=== PATIENT | male | born 1965 | race Caucasian/White ===

== ENCOUNTER 2018-12-24 23:28 | Inpatient (IN) | payer OTHER ==
[2018-12-24] MEDS ORDERED: methylPREDNISolone 125 MG* 2 ML VIAL ONE (23:35)
[2018-12-24] MEDS ORDERED: Albuterol 0.5% CONC NEB.SOL* 5 MG/ML 20 ml BOT ONE (23:36)
[2018-12-24] MEDS ORDERED: Magnesium Sulfate 2 GM IV* 2 GM/50 ML BAG ONE (23:38)
[2018-12-24] MEDS ORDERED: NS 0.9% 1000 ML** 1,000 ML IV ONE (23:44)
[2018-12-24] MEDS ORDERED: Albuterol 0.5% CONC NEB.SOL* 5 MG/ML 20 ml BOT INH ONE (23:44)
[2018-12-24] MEDS ORDERED: methylPREDNISolone 125 MG* 2 ML VIAL IV ONE (23:44)
--- NOTE | 2018-12-24 23:48 | ED ---
Shortness of Breath - HPI Summary HPI Summary: The patient is a 53 y/o M presenting to [facility] with a chief complaint of severe sudden onset respiratory distress tonight. In the ED, he is diaphoretic with cyanotic skin as he is wheezing and states his chest is tight. He denies CP. No hx of asthma, COPD, or cardiac problems, and he is a nonsmoker. He uses marijuana occasionally. With O2 in the ED, his color returns to normal. He states he wasn't feeling well earlier today, and he had a pain in his left leg. Initial history was limited due to severe respiratory distress, but on subsequent reevaluation's the patient related a history of several weeks of trouble breathing with cough. He had been prescribed a course of prednisone by his primary care doctor several weeks ago which improved his situation, but once he finished the prednisone his symptoms returned. - History of Current Complaint Hx Obtained From: Patient Onset/Duration: Sudden Onset, Lasting Minutes, Still Present Current Severity: Severe Dyspnea At: Rest Alleviating Factors: Oxygen Associated Signs & Symptoms: Wheezing, Diaphoresis - Allergy/Home Medications Allergies/Adverse Reactions: Allergies Allergy/AdvReac Type Severity Reaction Status Date / Time No Known Allergies Allergy Verified 10/05/17 15:09 Home Medications: Home Medications Hydrochlorothiazide TAB* [Hydrodiuril TAB*] 25 mg PO DAILY 12/25/18 [History Confirmed 12/25/18] PMH/Surg Hx/FS Hx/Imm Hx Endocrine/Hematology History: Denies: Hx Diabetes Cardiovascular History: Denies: Hx Hypertension, Hx Pacemaker/ICD Respiratory History: Reports: Other Respiratory Problems/Disorders - pneumothorax in accident Denies: Hx Sleep Apnea History: Denies: Hx Renal Disease Musculoskeletal History: Reports: Hx Back Problems - hx injury, Other Musculoskeletal History - states he has restless leg syndrome Sensory History: Denies: Hx Hearing Aid Neurological History: Reports: Hx Headaches - hx headaches at times, Other Neuro Impairments/Disorders - states he likely had a head injury when young Denies: Hx Developmental Delay Psychiatric History: Reports: Hx Depression Denies: Hx Panic Disorder - Surgical History Surgery Procedure, Year, and Place: RIGHT KNEE ARTHOSCOPIC SURGERY. LT HIP REPLACEMENT Infectious Disease History: No - Family History Known Family History: Negative: Cardiac Disease - Social History Alcohol Use: Occasionally Alcohol Amount: 3x/wk x 3 drinks Hx Substance Use: No Substance Use Type: Reports: Marijuana, Prescribed Substance Use Comment - Amount & Last Used: [place] Hx Tobacco Use: No Smoking Status (MU): Never Smoked Tobacco Review of Systems Positive: Skin Diaphoresis Negative: Chest Pain Positive: Shortness Of Breath - severe, Other - wheezing Positive: Other - pain in left leg Positive: Other - cyanotic All Other Systems Reviewed And Are Negative: Yes Physical Exam - Summary Physical Exam Summary: Appearance: In obvious respiratory distress, initially diaphoretic and appeared to be cyanotic Skin: Warm, dry, no obvious rash Eyes: sclera anicteric, no conjunctival pallor ENT: mucous membranes moist, pharynx appears normal Neck: Supple, nontender Respiratory: In obvious respiratory distress, diffuse bilateral severe wheezing in the lungs but no crackles, markedly diminished breath sounds Cardiovascular: Normal S1, S2. No murmurs. Normal distal pulses in tibial and radial bilaterally. Abdomen: Soft, nontender, normal active bowel sounds present Musculoskeletal: Normal, Strength/ROM Intact, no swelling in legs Neurological: A&Ox3, awake and alert, mentation is normal, speech is fluent and appropriate Psychiatric: affect is normal, does not appear anxious or depressed Triage Information Reviewed: Yes Vital Signs Reviewed: Yes Diagnostics - Laboratory Result Diagrams: 12/25/18 04:42 12/24/18 23:44 Lab Statement: Any lab studies that have been ordered have been reviewed, and results considered in the medical decision making process. - Radiology CXR Radiology Interpretation Completed By: Radiologist Summary of Radiographic Findings: No acute process. ED physician has reviewed this report. - CT Chest CTA CT Interpretation Completed By: Radiologist Summary of CT Findings: Suboptimal evaluation of pulmonary arteries due to inadequate opacification of contrast. ED physician has reviewed this report. - EKG 23:33 Cardiac Rate: Tachycardia - 124 BPM EKG Rhythm: Sinus Tachycardia Summary of EKG Findings: Sinus tachycardia. Re-Evaluation - Re-Evaluation First Eval Re-Evaluation Time: 01:00 Change: Improved Comment: Patient is improving with treatments. Second Eval Re-Evaluation Time: 02:00 Change: Unchanged Comment: We discussed admission. Course/Dx - Course Course Of Treatment: The patient is a 53 y/o M presenting to [facility] with a chief complaint of severe sudden onset respiratory distress tonight. In the ED, he is diaphoretic with cyanotic skin as he is wheezing and states his chest is tight. He denies CP. No hx of asthma, COPD, or cardiac problems, and he is a nonsmoker. He uses marijuana occasionally. With O2 in the ED, his color returns to normal. He states he wasn't feeling well earlier today, and he had a pain in his left leg. Upon physical examination, the patient is in obvious respiratory distress, his heart sounds normal but hes tachycardic, there are diffuse bilateral severe wheezing in the lungs but no crackles, markedly diminished breath sounds, no swelling in legs, and he was initially diaphoretic and appeared to be cyanotic. In the ED course, the patient was administered Albuterol, Mag Sulfate, Solu-Medrol, Ns, and put on Vapotherm. Lab work reveals elevated WBCs, neuts, monos, eos, D-Dimer, VBG pO2, O2 Sat, and lactic acid of 7.4. EKG reveals sinus tachycardia. CXR reveals no acute process. Chest CTA reveals no significant changes at this time due to inadequate reading. Repeat may be necessary by hospitalist. I spoke with Dr. Taylor, hospitalist, who accepts the patient for admission at 0300. The patient is diagnosed with acute respiratory failure and asthma exacerbation. He agrees with and understands need for admission. Critical Care Time of 60 minutes. - Diagnoses Provider Diagnoses: Acute respiratory failure, Asthma exacerbation - Critical Care Time Critical Care Time: 30-74 min - Critical care time of 60 minutes. Discharge - Sign-Out/Discharge Documenting (check all that apply): Patient Departure - Patient will be admitted to [facility] for further care. Patient Received Moderate/Deep Sedation with Procedure: No - Discharge Plan Condition: Stable Disposition: ADMITTED TO [facility] Referrals: Bernabe Bell MD [Primary Care Provider] - - Billing Disposition and Condition Condition: STABLE Disposition: Admitted to [facility] - Attestation Statements Document Initiated by Scribe: Yes Documenting Scribe: Idalia Sandoval Provider For Whom Cullen is Documenting (Include Credential): Dr. Farooq Sharp MD Scribe Attestation: Idalia Durán scribed for Dr. Farooq Sharp MD on 12/25/18 at 0502. Scribe Documentation Reviewed: Yes Provider Attestation: The documentation as recorded by the Idalia flores accurately reflects the service I personally performed and the decisions made by me, Dr. Farooq Sharp MD Status of Scribe Document: Viewed
[2018-12-25 00:01] LABS: ABS Basophils 0.2 10^3/ul (0-0.2); ABS Eosinophils 1.3 10^3/ul (0-0.6); ABS Lymphocytes 3.6 10^3/ul (1.0-4.8); ABS Monocytes 1.9 10^3/ul (0-0.8); ABS Neutrophils 9.2 10^3/ul (1.5-7.7); ABS Nucleated RBC 0 10^3/ul; Hematocrit 46 % (42-52); Hemoglobin 15.5 g/dl (14.0-18.0); Lymphocyte % 22.5 %; Mean Corpuscular HGB Conc 33 g/dl (31-36); Mean Corpuscular Hemoglobin 33 pg (27-31); Mean Corpuscular Volume 100 fL (80-94); Mean Platelet Volume 6.9 fL (7.4-10.4); Nucleated Red Blood Cells % 0; Platelet Count 452 10^3/ul (150-450); Red Blood Count 4.65 10^6/ul (4.00-5.40); Red Cell Distribution Width 15 % (10.5-15); White Blood Count 16.2 10^3/ul (3.5-10.8)
[2018-12-25 00:13] LABS: Albumin 4.6 g/dL (3.2-5.2); Albumin/Globulin Ratio 1.2 (1-3); BUN/Creatinine Ratio 9.9 (8-20); Calcium 9.3 mg/dL (8.6-10.3); EGFR African American 93.5 (>60); EGFR Non-African American 77.3 (>60); Globulin 3.7 g/dL (2-4); Potassium 3.6 mmol/L (3.5-5.0); Total Bilirubin 0.5 mg/dL (0.2-1.0); Total Protein 8.3 g/dL (6.4-8.9)
[2018-12-25] MEDS ORDERED: Iodixanol* (CONTRAST) 320 MG/ML 100 ML SDV IV ONE (00:21)
[2018-12-25] MEDS ORDERED: Albuterol 0.5% CONC NEB.SOL* 5 MG/ML 20 ml BOT INH ONE (01:54)
[2018-12-25] MEDS ORDERED: Albuterol 2.5 MG/3 ML NEB.SOL* (0.083%) INH PRN (03:55)
[2018-12-25] MEDS ORDERED: Acetaminophen TAB* 325 MG PO PRN (03:55)
[2018-12-25] MEDS ORDERED: Ibuprofen TAB* 600 MG PO PRN (04:07)
[2018-12-25 04:51] LABS: ABS Basophils 0.1 10^3/ul (0-0.2); ABS Eosinophils 0 10^3/ul (0-0.6); ABS Lymphocytes 0.5 10^3/ul (1.0-4.8); ABS Monocytes 0.2 10^3/ul (0-0.8); ABS Neutrophils 13.1 10^3/ul (1.5-7.7); ABS Nucleated RBC 0 10^3/ul; Eosinophil % 0.3 %; Hematocrit 44 % (42-52); Hemoglobin 14.9 g/dl (14.0-18.0); Lymphocyte % 3.5 %; Mean Corpuscular HGB Conc 34 g/dl (31-36); Mean Corpuscular Hemoglobin 33 pg (27-31); Mean Corpuscular Volume 97 fL (80-94); Mean Platelet Volume 6.8 fL (7.4-10.4); Nucleated Red Blood Cells % 0; Platelet Count 330 10^3/ul (150-450); Red Cell Distribution Width 15 % (10.5-15); White Blood Count 13.9 10^3/ul (3.5-10.8)
[2018-12-25 05:11] LABS: BUN/Creatinine Ratio 12.5 (8-20); Calcium 9.7 mg/dL (8.6-10.3); EGFR African American 109.6 (>60); EGFR Non-African American 90.6 (>60); Potassium 4.4 mmol/L (3.5-5.0)
[2018-12-25 05:30] LABS: Urine Appearance Cloudy; Urine Bacteria Absent (Absent); Urine Bilirubin Negative (Negative); Urine Blood 2+ (Negative); Urine Color Yellow; Urine Glucose Negative (Negative); Urine Ketones Negative (Negative); Urine Nitrite Negative (Negative); Urine Protein 2+(100 mg/dL) (Negative); Urine Red Blood Cell 2+(6-10/hpf) (Absent); Urine Specific Gravity 1.021 (1.010-1.030); Urine Urobilinogen Negative (Negative); Urine White Blood Cell Trace(0-5/hpf) (Absent)
[2018-12-25] MEDS: methylPREDNISolone SOD 40 MG* 1 ML VIAL IV SCH ×2 (07:47→16:39)
[2018-12-25] MEDS: Hydrochlorothiazide TAB* 25 MG PO SCH (07:47)
[2018-12-25] MEDS: Enoxaparin(*) 150 MG/ML 1 ML SYRINGE SUBCUT SCH ×2 (07:48→16:39)
[2018-12-25] MEDS ORDERED: Buprenorp/Nalox 4-1 MG FILM 1 EACH SL FILM SCH (09:00)
[2018-12-25] MEDS: Albuterol 2.5 MG/3 ML NEB.SOL* (0.083%) INH SCH ×3 (10:07→19:32)
--- NOTE | 2018-12-25 10:48 | HP ---
CC: Dr. Bell.* HISTORY AND PHYSICAL: DATE OF ADMISSION: 12/25/18 PRIMARY CARE PROVIDER: Dr. Bell. CHIEF COMPLAINT: Shortness of breath. HISTORY OF PRESENT ILLNESS: Mr. Dexter is a 53-year-old male with a history of chronic pain and hypertension, who presents to the emergency room with complaints of shortness of breath. The patient states that the shortness of breath has been ongoing for the last couple of months. He noted at one point about a month ago that he had a rash. His primary thought perhaps his shortness of breath and the rash were related, and he was started on prednisone. He took that for 10 days and felt quite a bit better after the initiation of the prednisone. This was stopped about one month ago. The patient describes progressive shortness of breath. He describes a wheezing noise. He states that he feels more wheezing on the right compared to the left. He states when he lies flat, he coughs uncontrollably and is bringing up mucous. He denies any fevers or chills. He definitely notices that the breathing is worse at night. The patient states that when he arrived to [facility] he was considerably short of breath. Nursing noted that he was cyanotic and quite tachypneic. He was rushed emergently back to the room in the ER. The patient is subsequently feeling much better after the multiple nebulizer treatments and initiation of Vapotherm. PAST MEDICAL HISTORY: 1. Chronic pain. 2. Hypertension. PAST SURGICAL HISTORY: 1. Left total hip replacement. 2. Right knee ACL repair. MEDICATIONS: 1. Suboxone 4/1 sublingual t.i.d. 2. Hydrochlorothiazide 25 mg p.o. daily. 3. Ibuprofen 600 mg p.o. daily p.r.n. pain. ALLERGIES: No known drug allergies. FAMILY HISTORY: Mom is living, she is healthy. Dad is also living, he is also healthy. SOCIAL HISTORY: The patient does not smoke. He does admit to drinking 3 to 4 beers most days of the week. He would smoke marijuana on occasion, but states he does not do that often because of his lungs. 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 He is not . He has 1 child. He indicates that his dad Johnathan would be his healthcare proxy. REVIEW OF SYSTEMS: A complete 11-system review of systems was obtained. Pertinent positives and negatives are as per HPI. In addition, the patient does admit to left lower extremity edema that he states is chronic and in about the usual amount. PHYSICAL EXAMINATION GENERAL: The patient is a well-developed middle-aged male seen sitting up in the stretcher in no acute distress. VITAL SIGNS: Blood pressure 144/114, pulse 106, respirations 16, temp 98.2, O2 sat 95% on 40 L of Vapotherm. HEENT: Pupils are equal and round. Extraocular muscles are intact. Oropharynx is clear. Oral mucosa is moist. There is no submandibular, cervical , or supraclavicular adenopathy. Thyroid is not enlarged. No thyroid nodules noted. PULMONARY: There is diffuse wheezing in all lung chowdary, but more significant in the right lung. CARDIAC: Normal S1, S2. Heart rate is tachycardic, but regular. ABDOMEN: Bowel sounds are present. Abdomen is soft, nontender, and nondistended. EXTREMITIES: There is trace to 1+ pitting edema of the right lower extremity and 1+ to 2+ pitting edema of the left lower extremity. NEUROLOGIC: Cranial nerves II through XII are grossly intact. Sensation is intact to light touch throughout. Strength is 5/5 and symmetric both upper and lower extremities bilaterally. MUSCULOSKELETAL: There is no cyanosis or clubbing of the digits. There is full active range of motion in all 4 extremities. SKIN: Warm and dry. There are no rashes. PSYCHIATRIC: The patient is alert. He is oriented x3. Affect appears appropriate. DIAGNOSTIC STUDIES/LAB DATA: WBC 16.2, hemoglobin 15.5, hematocrit 46, platelets 452. D-dimer greater than 1050. ABG 7.27/56/49. Sodium 136, potassium 3.6, chloride 96, CO2 23, BUN 10, creatinine 1.01, glucose 164, lactic acid 7.4, calcium 9.3. Bilirubin 0.5, AST 45, ALT 50, alk phos 96. Troponin 0, BNP 59, albumin 4.6. Urinalysis reveals cloudy urine with specific gravity of 1.021, negative for nitrites and leukocyte esterase. EKG revealed sinus tachycardia with poor EKG due to artifact and an unstable baseline. Chest x-ray reveals elevated lung volumes, which suggest potential obstructive lung disease. No acute cardiopulmonary process evident. CTA chest reveals suboptimal evaluation of the pulmonary arteries due to inadequate opacification of contrast. There is no consolidation or masses in the lung. There is no pneumothorax. No pleural effusion. ASSESSMENT AND PLAN: Mr. Dexter is a 53-year-old male with a history of chronic pain and hypertension, who presents to the emergency room with complaints of severe shortness of breath and is admitted for acute hypoxic respiratory failure. 1. Acute hypoxic respiratory failure. Differential diagnosis for this includes perhaps CHF versus pulmonary embolism versus asthma/possible COPD. The patient did undergo CTA of the chest; however, this was a suboptimal study. At this point, I am going to dose him with full dose Lovenox and we will obtain Dopplers of his lower extremities given the bilateral swelling. If the Dopplers are positive, the patient will need to be treated, if negative and there is still high suspicion for PE repeat CTA or V/Q scan should be ordered. I have ordered a transthoracic echocardiogram to evaluate for possible CHF given the history of worsening shortness of breath and coughing when lying flat. I suspect this is an unlikely cause, however, as the patient's BNP is only 59. The patient is diffusely wheezy. He will continue on albuterol nebulizers every 4 hours while awake. If the patient fails to improve over the next several hours, consultation with Dr. Alvarez, would be warranted. 2. Hypertension. The patient's blood pressure has been moderately elevated. We will continue his hydrochlorothiazide for now; however, if this fails to control his blood pressure and additional antihypertensive agent should be added. 3. Chronic pain. We will continue Suboxone at home dose. 4. DVT prophylaxis. According to the Adult Thrombosis Prophylaxis Risk Factor Assessment Guide, the patient has a total risk factor score of 3, making him high risk. He is already going to be on therapeutic dose Lovenox temporarily and this will act as a DVT prophylaxis. 9. Code status is full. TIME SPENT: Sixty minutes was spent admitting this patient. [id number]/[facility] #: [id number] ZANA
[2018-12-25] MEDS ORDERED: Perflutren Lipid Microsphere* 3 ML VIAL ONE (13:26)
[2018-12-25] MEDS: Calcium Carbonate CHEW TAB* 500 MG (TUMS) PO PRN (13:54)
[2018-12-25] MEDS: Buprenorp/Nalox 4-1 MG FILM 1 EACH SL FILM SCH ×2 (16:39→23:31)
[2018-12-25] MEDS: NIFEdipine ER TAB* 30 MG PO SCH (17:05)
--- NOTE | 2018-12-25 18:01 | PN ---
Subjective Interval History: Admitted this AM. Pt reports significant improvement in symptoms after nebs and IV steroids. Objective Active Medications: Acetaminophen (Tylenol Tab*) 650 mg PO Q4H PRN PRN Reason: pain Albuterol (Ventolin 2.5 Mg/3 Ml Neb.Isha*) 2.5 mg INH [id number] [facility]KE [facility] Buprenorphine/Naloxone (Suboxone 4 Mg-1 Mg Sl Film) 1 each SL FILM Q8H [facility] Last Admin: 12/25/18 16:39 Dose: 1 each Calcium Carbonate (Tums*) 500 mg PO Q4H PRN PRN Reason: INDIGESTION Last Admin: 12/25/18 13:54 Dose: 500 mg Enoxaparin Sodium (Lovenox(*)) 40 mg SUBCUT Q24H [facility] Hydrochlorothiazide (Hydrodiuril Tab*) 25 mg PO DAILY [facility] Last Admin: 12/25/18 07:47 Dose: 25 mg Nifedipine (Procardia Xl Tab*) 30 mg PO DAILY [facility] Last Admin: 12/25/18 17:05 Dose: 30 mg Prednisone (Deltasone Tab*) 50 mg PO DAILY [facility] Vital Signs - 8 hr 12/25/18 12/25/18 12/25/18 10:00 10:07 10:15 Temperature Pulse Rate 99 93 92 Respiratory 13 18 25 Rate Blood Pressure 151/87 112/92 (mmHg) O2 Sat by Pulse 100 98 Oximetry 12/25/18 12/25/18 12/25/18 10:31 10:45 11:00 Temperature Pulse Rate 103 96 95 Respiratory 16 17 18 Rate Blood Pressure 157/86 149/91 (mmHg) O2 Sat by Pulse 81 93 99 Oximetry 12/25/18 12/25/18 12/25/18 11:15 11:30 12:00 Temperature Pulse Rate 98 91 97 Respiratory 19 13 26 Rate Blood Pressure 162/92 155/92 (mmHg) O2 Sat by Pulse 100 99 93 Oximetry 12/25/18 12/25/18 12/25/18 12:26 13:00 13:44 Temperature 98.1 F Pulse Rate 92 156 Respiratory 17 16 Rate Blood Pressure 177/101 (mmHg) O2 Sat by Pulse 90 Oximetry 12/25/18 12/25/18 12/25/18 14:00 15:00 15:26 Temperature Pulse Rate 98 88 93 Respiratory 18 16 20 Rate Blood Pressure 160/97 148/97 (mmHg) O2 Sat by Pulse 94 92 92 Oximetry Oxygen Devices in Use Now: High Flow Nasal Cannula Result Diagrams: 12/25/18 04:42 12/25/18 04:42 Microbiology and Other Data: Microbiology 12/25/18 07:55 Nasal Screen MRSA (PCR) - Final Nasal Mrsa Not Detected Assess/Plan/Problems-Billing Assessment: 53M with h/o chronic pain on Suboxone s/p hip replacement and knee surgeries, HTN, who presents with severe dyspnea and was found hypoxic, now improving s/p steroids and nebs. Pt reports similar episode last year that resolved with steroids outpatient. - Patient Problems (1) Hypoxia Comment: Pt without e/o consolidation on Chest CT, but contrast study not optimal to evaluate for PE (and LE dopplers negative for DVT). CXR hyperinflated - possible this patient with a history of smoking is having a COPD exacerbation, supported by significant wheezing on exam and rapid improvement with nebs and steroids. - switch from IV to PO steroids - last dose 12/29 - cont nebs prn - TTE ordered - if not improving or worsens, will consider re-ordering CT PE (pt reports very sedentary recently) - stop therapeutic lovenox - will need PFTs as outpatient (2) Chronic pain Comment: cont outpatient Suboxone (3) Hypertension Comment: - not well controlled on home HCTZ 25 - continue - add nifedipine 30mg daily - titrate up as needed Status and Disposition: Inpatient until off supplemental O2. Will have to follow up closely with PCP for PFTs.
--- NOTE | 2018-12-25 19:46 | ECHO ---
Patient: ROSENDO DE LA O [facility] Rec#: [id number] : 1965 Date: 12/25/2018 Age: 53y Height: 173 cm / 68.1 in Weight: 116 kg / 255.7 lbs Sex: M BSA: 2.27 Room#: ICU Admit Date#: 12/25/2018 Type: Inpatient Referring: Jamila Slaughter MD Reading: Abbey Cid MD [place] Reporter: Roseanne Cox RDCS,RDMS CC: Bernabe Bell MD Transthoracic Echocardiogram Indication: SOB BP: 155/92 HR: 90 Rhythm: NSR Findings History: HTN, chronic pain Technical Comments: The study is technically limited due to poor acoustic windows. Left Ventricle: The left ventricular chamber size is normal. Mild concentric left ventricular hypertrophy is observed. Basal interventricular septum shows moderate thickening. Global left ventricular wall motion and contractility are within normal limits. The left ventricle appears hyperdynamic. The estimated ejection fraction is 60-65%. There is no consistent Doppler evidence of clinically significant diastolic dysfunction. Left Atrium: The left atrial chamber size is normal. Right Ventricle: The right ventricular chamber size and systolic function are within normal limits. Right Atrium: The right atrial cavity size is normal. Aortic Valve: The aortic valve structure is not well visualized. There is no evidence of aortic valve thickening. There is no evidence of aortic regurgitation. There is no evidence of aortic stenosis. Mitral Valve: The mitral valve leaflets appear normal. There is no evidence of mitral regurgitation. There is no evidence of mitral stenosis. Tricuspid Valve: The tricuspid valve leaflets are normal. There is no evidence of tricuspid valve regurgitation. Unable to estimate the right ventricular systolic pressure. Pulmonic Valve: The pulmonic valve structure is not well visualized. There is a trace pulmonic regurgitation. Pericardium: There is no significant pericardial effusion. Aorta: The ascending aorta is not well visualized. The aortic arch is not well visualized. There is mild dilatation of the aortic root. Pulmonary Artery: The main pulmonary artery is not well visualized. Venous: The inferior vena cava appears normal in size. There is a greater than 50% respiratory change in the inferior vena cava dimension. Contrast: Definity was used to optimize study. A total of 3 ml was used. Conclusions The study is technically limited due to poor acoustic windows. Definity echo contrast used. Mild concentric left ventricular hypertrophy is observed. Global left ventricular wall motion and contractility are within normal limits. The left ventricle appears hyperdynamic. The estimated ejection fraction is 60-65%. There is no consistent Doppler evidence of clinically significant diastolic dysfunction. The right ventricular chamber size and systolic function are within normal limits. All valves show grossly normal function. No prior echo to compare. Measurements Name Value Normal Range RVIDd (AP) 2D 3 cm (0.9 - 2.6) RVDdMajor (2D) 2.4 cm (2.2 - 4.4) RAd ISD 4CH 4.5 cm (3.4 - 4.9) RA (A4C)W 3.6 cm (2.9 - 4.6) IVSd (2D) 1.6 cm (0.6 - 1) LVPWd (2D) 1.1 cm (0.6 - 1) LVIDd (2D) 4.7 cm (3.6 - 5.4) LVIDs (2D) 2.9 cm - LV FS (2D) 37 % (25 - 45) Aortic Annulus 2.1 cm (1.4 - 2.6) Ao root diameter (2D) 3.7 cm (2.1 - 3.5) LA dimension (AP) 2D 3.4 cm (2.3 - 3.8) LAd ISD 4CH 5.1 cm (2.9 - 5.3) LA ISD 4CH W 3.3 cm (2.5 - 4.5) Name Value Normal Range LA ESV BP (A/L) index 21 ml/m2 - Name Value Normal Range MV E-wave Vmax 0.8 m/sec - MV deceleration time 169 msec - MV A-wave Vmax 0.6 m/sec - MV E:A ratio 1.3 ratio - P. vein S-wave Vmax 0.5 m/sec - P. vein D-wave Vmax 0.4 m/sec - P. vein S:D Vmax ratio 1.3 ratio - P. vein A-wave duration 108 msec - LV septal e' Vmax 0.12 m/sec - LV lateral e' Vmax 0.15 m/sec - LV E:e' septal ratio 6 ratio - LV E:e' lateral ratio 5 ratio - Name Value Normal Range AV Vmax 1.2 m/sec - AV VTI 24 cm - AV peak gradient 6 mmHg - AV mean gradient 4 mmHg - LVOT Vmax 1.2 m/sec - LVOT VTI 20 cm - LVOT peak gradient 6 mmHg - LVOT mean gradient 3 mmHg - AYO Vmax 0.8 m/sec - Name Value Normal Range IVC diameter 1.7 cm - Name Value Normal Range PV Vmax 0.8 m/sec - PV peak gradient 2.6 mmHg -
[2018-12-26] MEDS: Albuterol 2.5 MG/3 ML NEB.SOL* (0.083%) INH SCH ×5 (00:27→19:35)
[2018-12-26] MEDS: Calcium Carbonate CHEW TAB* 500 MG (TUMS) PO PRN (03:07)
[2018-12-26 07:23] LABS: Hematocrit 42 % (42-52); Hemoglobin 14.3 g/dl (14.0-18.0); Mean Corpuscular HGB Conc 34 g/dl (31-36); Mean Corpuscular Hemoglobin 34 pg (27-31); Mean Corpuscular Volume 98 fL (80-94); Mean Platelet Volume 7.2 fL (7.4-10.4); Platelet Count 310 10^3/ul (150-450); Red Blood Count 4.27 10^6/ul (4.00-5.40); Red Cell Distribution Width 15 % (10.5-15); White Blood Count 13.8 10^3/ul (3.5-10.8)
[2018-12-26 07:37] LABS: BUN/Creatinine Ratio 22.6 (8-20); C Reactive Protein 15.99 mg/L (<8.01); Calcium 9.6 mg/dL (8.6-10.3); EGFR African American 102.8 (>60); Potassium 4.1 mmol/L (3.5-5.0)
[2018-12-26 08:14] LABS: ABS Basophils 0 10^3/ul (0-0.2); ABS Eosinophils 0 10^3/ul (0-0.6); ABS Monocytes 1.9 10^3/ul (0-0.8); ABS Neutrophils 10.9 10^3/ul (1.5-7.7); ABS Nucleated RBC 0 10^3/ul; Eosinophil % 0 %; Lymphocyte % 7.3 %; Nucleated Red Blood Cells % 0
[2018-12-26] MEDS: NIFEdipine ER TAB* 30 MG PO SCH (09:15)
[2018-12-26] MEDS: predniSONE TAB* 50 MG PO SCH (09:15)
[2018-12-26] MEDS: Buprenorp/Nalox 4-1 MG FILM 1 EACH SL FILM SCH ×3 (09:15→23:53)
[2018-12-26] MEDS: Hydrochlorothiazide TAB* 25 MG PO SCH (09:15)
[2018-12-26 14:44] LABS: TSH (Thyroid Stimulating Horm) 0.41 mcIU/mL (0.34-5.60)
[2018-12-26 14:48] LABS: Ferritin 270.5 ng/mL (24-336)
[2018-12-26] MEDS: GuaiFENesin DM* 5 ML UDC PO PRN ×2 (15:27→23:57)
[2018-12-26] MEDS ORDERED: Benzocaine/Menthol LOZ* 1 LOZENGE PO PRN (16:48)
[2018-12-26] MEDS ORDERED: Enoxaparin(*) 40 MG/0.4 ML SYR SUBCUT SCH (18:00)
--- NOTE | 2018-12-26 18:35 | PN ---
Subjective Interval History: Pt feeling better than yesterday but still with some dyspnea and anxiety. Noted to have SaO2 94% when supplemental O2 decreaesd to 3L. However, by evening pt was able to walk around floors without oxygen and was noted to be 92% on RA. Objective Active Medications: Acetaminophen (Tylenol Tab*) 650 mg PO Q4H PRN PRN Reason: pain Last Admin: 12/25/18 20:53 Dose: 650 mg Albuterol (Ventolin 2.5 Mg/3 Ml Neb.Isha*) 2.5 mg INH [id number] AWAKE [facility] Last Admin: 12/26/18 13:23 Dose: 2.5 mg Buprenorphine/Naloxone (Suboxone 4 Mg-1 Mg Sl Film) 1 each SL FILM Q8H [facility] Last Admin: 12/26/18 15:28 Dose: 1 each Calcium Carbonate (Tums*) 500 mg PO Q4H PRN PRN Reason: INDIGESTION Last Admin: 12/26/18 03:07 Dose: 500 mg Enoxaparin Sodium (Lovenox(*)) 40 mg SUBCUT Q24H [facility] Guaifenesin/Dextromethorphan (Robitussin Dm*) 10 ml PO Q6H PRN PRN Reason: COUGH Last Admin: 12/26/18 15:27 Dose: 10 ml Hydrochlorothiazide (Hydrodiuril Tab*) 25 mg PO DAILY [facility] Last Admin: 12/26/18 09:15 Dose: 25 mg Nifedipine (Procardia Xl Tab*) 30 mg PO DAILY [facility] Last Admin: 12/26/18 09:15 Dose: 30 mg Prednisone (Deltasone Tab*) 50 mg PO DAILY [facility] Last Admin: 12/26/18 09:15 Dose: 50 mg Throat Lozenges (Chloraseptic Jacob*) 1 jacob PO Q6H PRN PRN Reason: COUGH Vital Signs - 8 hr 12/26/18 12/26/18 12/26/18 11:42 13:25 14:23 Temperature 97.9 F 96.9 F Pulse Rate 88 81 103 Respiratory 16 16 20 Rate Blood Pressure 151/82 136/91 (mmHg) O2 Sat by Pulse 95 92 90 Oximetry Oxygen Devices in Use Now: None Appearance: well appearing, speaking in full sentences Respiratory: - - better air movement, still diffuse expiratory wheezing Cardiovascular: RRR Result Diagrams: 12/26/18 06:46 12/26/18 06:46 Assess/Plan/Problems-Billing Assessment: 53M with h/o chronic pain on Suboxone s/p hip replacement and knee surgeries, HTN, who presents with severe dyspnea and was found hypoxic, now improving with steroids and nebs. Pt reports similar episode last year that resolved with steroids outpatient. Seen by pulm and thought to have new dx of asthma. - Patient Problems (1) Hypoxia Comment: Wheeze on exam, CXR hyperinflated, CT without e/o consolidation, likely new asthma diagnosis. - cont PO steroids - last day 12/29 - cont nebs prn - will need PFTs and sleep study as outpatient (2) Chronic pain Comment: cont outpatient Suboxone (3) Hypertension Comment: - cont HCTZ 25 mg - started nifedipine 30mg daily yesterday Status and Disposition: Inpatient until off supplemental O2. Will have to follow up closely with PCP for PFTs.
--- NOTE | 2018-12-26 20:51 | CONS ---
PULMONARY CONSULTATION REPORT: DATE OF CONSULT: 12/26/18 CONSULTATION REQUESTED: Jamila Slaughter MD. REASON FOR CONSULT: Evaluation of shortness of breath. HISTORY OF PRESENT ILLNESS: The patient is 53-year-old obese male with history of chronic pain, hypertension, who presents to the emergency room for evaluation of worsening shortness of breath. The patient reports his initial episode of shortness of breath happened a year ago when he aspirated on his saliva. He had significant worsening of shortness of breath after that and then was started on prednisone taper and antibiotics. His symptoms improved; however, never returned to his baseline. He continues to have sensitivity to airway irritants. He occasionally smokes marijuana, which elicits cough and bronchospasm. The patient also reports being bothered by many irritants in the environment. The patient reports occasional wheezing from his lungs. The patient also admits to acid reflux symptoms. He takes Tums as needed for acid reflux. The patient reports mild cough and feeling of congestion in his lungs. The patient denies history of recurrent bronchitis. The patient reports developing worsening shortness of breath in the past couple of months. He also reports pruritic rash that developed in his extremities. He was given prednisone, which helped with the rash. He started having symptoms again since the prednisone was stopped. He reports most of the symptoms onto the right lung. He reports that when he lies flat or onto his right side, he coughs uncontrollably and brings about mucus. Denies fevers or chills. Denies URI symptoms recently. Denies recent travel or sick contacts. The patient also reports worsening shortness of breath symptoms at night. The patient admits to snoring midnight and disruptive sleep. In the emergency room, the patient was found to be in significant shortness of breath and also tachypneic and cyanotic. He was given multiple nebulizer treatments, which helped as per the patient. He was also initiated on Vapotherm. The chest x-ray and CT scan of the chest was ordered for evaluation of possible pulmonary embolism. I have personally reviewed chest x-ray and CT scan of the chest. Chest x-ray did not suggest any acute airspace opacities. Evidence of hyperinflation present. CT of the chest was also personally reviewed by me. Evidence of mild bronchiectasis noted. No suspicious airspace opacities noted. No evidence of atelectasis noted. No evidence of emphysema. Venous Doppler did not reveal any DVT. Echo did not reveal any acute abnormality. The patient was initiated on treatment for bronchitis and management of acute hypoxemic respiratory failure. PAST MEDICAL HISTORY: 1. Chronic back pain. 2. Hypertension. PAST SURGICAL HISTORY: 1. Left total hip replacement. 2. Right knee ACL repair. MEDICATIONS AT HOME: 1. Suboxone. 2. Hydrochlorothiazide. 3. Ibuprofen. ALLERGIES: No known drug allergies. FAMILY HISTORY: Parents are healthy with no medical problems. SOCIAL HISTORY: Does not smoke. Drinks 3 to 4 beers most days of the week. He smokes marijuana on occasions, but has not smoked for many months now. He is currently disabled due to chronic lower extremity mobility issues. REVIEW OF SYSTEMS: All 14-systems reviewed, are as per HPI. PHYSICAL EXAMINATION: The patient in bed, in no apparent distress, was asleep when I walked into the room and was wheezing. Vital Signs: Temperature 96.9, pulse of 89 to 74 beats per minute and respiratory rate 16 to 20 per minute and O2 sat of 90% on room air, blood pressure 136/91. HEENT: Pupils equal reactive to light. Mucous membranes moist. Mallampati class IV airway. Respiratory: Diffuse wheeze on auscultation bilaterally. Diminished air entry. Cardiovascular: S1 and S2 present, regular. Abdomen: Soft, nontender , nondistended. Bowel sounds present. Obese. Extremities: Normal range of motion. 1+ edema. Skin: Rash present bilaterally and some excoriations of skin from scratching. Neuro: Alert, awake, oriented x3. No focal deficits. DIAGNOSTIC STUDIES/LAB DATA: WBC count 13.8, hemoglobin 14.3, hematocrit 42, platelet count of 310. Blood gas analysis on admission was a VBG which showed a pH of 7.27, pCO2 of 56, and O2 of 49. A repeat venous blood gas showed pH of 7.35, pCO2 improved to 47 with pO2 of 69 and bicarb of 24, O2 sat of 93. Sodium 137, potassium 4.1, chloride 100, bicarb 29, BUN 31, creatinine 0.93, lactic acid within normal limits on this admission. Ferritin 270, CRP 15, TSH 0.41. Chest x-ray and CT as described up in HPI. IMPRESSION AND RECOMMENDATIONS: 53-year-old obese male with a history of gastroesophageal reflux disease and symptoms consistent with reactive airway disease. 1. Reactive airway disease is likely exacerbated secondary to underlying gastroesophageal reflux disease or bronchitis. 2. His body habitus is concerning for sleep apnea which might also be resulting in acid reflux at night and resultant reactive airway disease. 3. His is a nonsmoker. He does marijuana occasionally, which also bothers his lungs. 4. He has mild bronchiectasis bilaterally, predominantly on the right side, which is also indicative of probably ongoing acid reflux into his lungs. 5. Continue with bronchodilators q.4 hours p.r.n. 6. I agree with Prednisone 50 mg daily. Will continue with taper as symptoms improve. 7. Would recommend acid reflux therapy with a PPI. 8. Will need evaluation for asthma and sleep apnea as outpatient. 9. Weight loss counseling and education. Thank you for allowing me to participate in the care of your patient. Will follow up with you. [id number]/PERRY #: [id number] ZANA
[2018-12-26] MEDS: Nicotine GUM* 2 MG PO PRN (21:34)
[2018-12-27] MEDS: Albuterol 2.5 MG/3 ML NEB.SOL* (0.083%) INH SCH ×2 (00:39→08:22)
[2018-12-27] MEDS: Hydrochlorothiazide TAB* 25 MG PO SCH (08:03)
[2018-12-27] MEDS: Nicotine GUM* 2 MG PO PRN (08:03)
[2018-12-27] MEDS: predniSONE TAB* 50 MG PO SCH (08:03)
[2018-12-27] MEDS: Buprenorp/Nalox 4-1 MG FILM 1 EACH SL FILM SCH (08:03)
[2018-12-27] MEDS: GuaiFENesin DM* 5 ML UDC PO PRN (08:03)
[2018-12-27] MEDS: NIFEdipine ER TAB* 30 MG PO SCH (08:03)
[2018-12-27 08:06] VITALS: BP 109/68
--- NOTE | 2018-12-27 11:36 | DS ---
CC: Dr. Bernabe Bell; Dr. Alvarez * DISCHARGE SUMMARY: DATE OF ADMISSION: 12/25/18 DATE OF DISCHARGE: 12/27/18 PRIMARY CARE PHYSICIAN: Bernabe Bell MD PRIMARY DIAGNOSIS: Asthma. SECONDARY DIAGNOSIS: Hypertension. CONSULTS: Pulmonary, Dr. Alvarez. PERTINENT STUDIES: All urine and blood cultures resulted no growth by day of discharge. Chest x-ray without evidence of pneumonia but with elevated lung volume suggesting potential obstructive lung disease. Chest CT on 12/25/18, inadequate contrast study, unable to evaluate for pulmonary embolism, however, no evidence of consolidation or mass. A transthoracic echocardiogram which showed mild concentric LVH, but LV wall motion and contractility within normal limits. EF 60% to 65%. HISTORY OF PRESENT ILLNESS: A 53-year-old man with history of chronic pain on Suboxone with multiple hip and knee surgeries, hypertension, presented to the ER with progressive dyspnea over the last several months. A few months ago, he also had a rash. His primary care doctor was concerned that the shortness of breath and rash were related and the patient was given prednisone for which he felt significantly better with resolution of dyspnea and rash. This course of prednisone stopped about 1 month prior to presentation. The patient also reports he hears wheezing noise from his lungs while he is breathing and the wheezing is worse on the right when compared to the left. His cough is made worse from lying flat. He denies any upper respiratory symptoms, fevers, or chills. HOSPITAL COURSE: On presentation to the ER, he was considerably short of breath and cyanotic and tachypneic with oxygen saturation 95% on high flow nasal cannula. The patient was started on IV steroids and nebulizer treatments with eventually significant improvement in his dyspnea. He had lower extremity Dopplers negative for clot. He was not given antibiotics and continued to improve by day of discharge. On day of discharge, he only reported some mild shortness of breath and cough, but was able to walk around the floors at a normal walking pace without worsening of his symptoms. Otherwise, 10-point review of symptoms was negative. He was evaluated by table worker, Dr. Alvarez, who was most concerned that this is a new asthma diagnosis and exacerbation. PHYSICAL EXAMINATION: On physical exam, well-appearing man, walking around in room, speaking in full sentences. Heart: Regular rate and rhythm. No murmurs , gallops, or rubs. Lungs: With mild expiratory wheeze diffusely. Abdomen: Soft, nontender, nondistended. Lower extremities without edema. DISCHARGE PLAN: The patient is to follow up with his primary care physician next week. He'll be discharge on new treatment for asthma, as well as a second HTN medication. DISCHARGE MEDICATION LIST: 1. Prednisone 40 mg daily for 2 more days. 2. Fluticasone 100 mcg inhaled twice a day, this is a new medication, maybe titrated off. 3. Albuterol inhaler 2 puffs [id number] as needed for shortness of breath, this is a new medication. 4. Hydrochlorothiazide 25 mg daily. 5. Nifedipine 30 mg daily, this is a new medication. 6. Guaifenesin as needed for cough. 7. Nicotine gum as needed for cravings. 8. Suboxone 1 tab 3 times a day. DISCHARGE PLAN: The patient was given return precautions. He was given a peak flow meter to continue to monitor his breathing at home. He is to resume a healthy diet, low in processed foods for weight loss, and resume activity as tolerated. TIME SPENT: Approximately 60 minutes was spent on discharge of this patient, more than half of which was spent with care, coordination at bedside, for interview and exam. [id number]/[facility] #: [id number] ZANA
== END 2018-12-27 11:45 | disposition home or self-care (01) | DRG 141 ==
LOC: ED 23:28 → ICU 12-25 03:55 → MED 12-26 02:57
PROVIDERS: ADMIT Hospitalist; ATTEND Internal Medicine
DX: J45.901 Unspecified asthma with (acute) exacerbation (principal); G89.29 Other chronic pain; I10 Essential (primary) hypertension; Z96.642 Presence of left artificial hip joint; K21.9 Gastro-esophageal reflux disease without esophagitis; J47.9 Bronchiectasis, uncomplicated; F32.9 Major depressive disorder, single episode, unspecified; R09.02 Hypoxemia; Z72.89 Other problems related to lifestyle
CPT/HCPCS: 36415; 71045; 71275; 80048; 80053; 81003; 81015; 82728; 82803; 83036; 83605; 83880; 84443; 84484; 85025; 85379; 86140; 87040; 87086; 87641; 93005; 93306; 93970; 94640; 99284; A9270-GY; C8929; G8978-GP-CH; G8979-GP-CH; G8980-GP-CH; J1650; J2920; J2930; J3475; J7512; J7611; Q9967

== ENCOUNTER → 2019-08-20 10:25 | Day surgery (SDC) | payer OTHER ==
[~2019-08-20 10:25] MED LIST: Buffered Lidocaine 1% SYRIN* 1 ML/SYRINGE INTRADERM ONE; Lactated Ringers 1000 ML Bag* 1,000 ML IV SCH; Propofol* 10 MG/ML 20 ML BTL ONE
[2019-08-20 13:49] VITALS: BP 132/96
--- NOTE | 2019-08-20 15:27 | PRO ---
CC: Dr. Bernabe Bell * DATE OF PROCEDURE: 08/20/19 [facility] PROCEDURE: Colonoscopy. REFERRING PROVIDER: Dr. Bernabe Bell. INDICATION: The patient had a positive FIT test earlier this year. He was scheduled for a colonoscopy in March which was cancelled. He reports seeing a little bit of blood yesterday, which he thinks is because he has significant irritation perianally related to the prep. Denies any symptoms otherwise. No family history of colon cancer or colon polyps. MEDICATIONS: Medications given by Anesthesia. DESCRIPTION OF PROCEDURE: Full disclosure of risks was reviewed with the patient as detailed on the consent form. The patient was placed in the left lateral decubitus position and monitored with continuous pulse oximetry, capnography, interval blood pressure monitoring, and direct observation. After anorectal examination was performed, the adult colonoscope was inserted into the rectum and slowly advanced forward to the level of the terminal ileum. Complete views of the cecum were obtained including the medial wall between the IC valve and the appendiceal orifice. Quality of the prep was good. Photodocumentation of landmarks obtained. Careful inspection was made as the colonoscope was withdrawn. Retroflexion was attempted, but unsuccessful as discussed below. FINDINGS: Anorectal exam demonstrated erythematous skin surrounding the perianal area consistent with dermatitis, likely related to the prep. Scope was then inserted into the rectum and slowly advanced forward. The patient was quite sensitive as the scope was passed through the sigmoid, particularly in an area of diverticulosis. Abdominal pressure was used briefly to help advance the scope forward. The scope was able to reach the cecum. Once in the cecum, the terminal ileum was intubated briefly. Ileal mucosa was normal in appearance. Scope was then withdrawn back into the cecum and then slowly throughout the length of the colon. There were no polyps. No masses. No colitis. There was moderate severity diverticulosis in the sigmoid colon with some muscular hypertrophy. Retroflexion in the rectum was attempted, but the patient was passing large amounts of gas making it hard to fully distend the rectum. Careful inspection was made as the scope was pulled through the anal canal. There were small internal hemorrhoids. The patient tolerated the procedure well and was recovered in the GI recovery area. IMPRESSION: 1. Complete colonoscopy to the terminal ileum. 2. Moderate severity diverticulosis in the left colon. 3. Small internal hemorrhoids. 4. Perianal dermatitis. FOLLOWUP: 1. Recommend high-fiber diet. 2. Recommend conservative management for hemorrhoids. Would trial a zinc oxide product on the perianal area to see if this will help relieve the discomfort. He should contact his clinic if his symptoms persist. 3. Repeat colonoscopy in 10 years. Thank you very much for the referral. [id number]/[facility] #: [id number] ZANA
== END | disposition home or self-care (01) ==
LOC: OR 10:25
PROVIDERS: ATTEND Internal Medicine Gastroenterology
DX: K92.1 Melena (principal); K57.30 Diverticulosis of large intestine without perforation or abscess without bleeding; K64.8 Other hemorrhoids; I10 Essential (primary) hypertension; J45.909 Unspecified asthma, uncomplicated; F32.9 Major depressive disorder, single episode, unspecified
CPT/HCPCS: J2704